=== PATIENT | male | born 1945 | race Caucasian/White ===

== ENCOUNTER 2017-10-22 11:23 | Inpatient (IN) | payer OTHER, MEDICAID ==
[~2017-10-22] VITALS: Ht 172.7 cm; Wt 70.5 kg
[2017-10-22 12:56] LABS: Basophils # (auto) 0 uL; Eosinophils # (auto) 0.1 uL; Hemoglobin 13.2 g/dL (13.5-17.5); Lymphocytes # (auto) 1.6 uL; Lymphocytes % (auto) 14.5 % (10.0-50.0); Monocytes # (auto) 0.9 uL
[2017-10-22 12:58] LABS: Basophils % (auto) 0.3 % (0.0-2.0); Eosinophils % (auto) 0.8 % (0.0-7.0); Mean Corpuscular Hemoglobin 32.7 pg (28.0-32.0); Mean Corpuscular Hgb Conc. 33.8 g/dL (32.0-36.0); Mean Corpuscular Volume 96.9 fL (80.0-100.0); Monocytes % (auto) 7.8 % (0.0-12.0); Neutrophils # (auto) 8.5 uL; Neutrophils % (auto) 76.6 % (37.0-80.0); Platelet Count (auto) 472 10^3/uL (140-450); Red Blood Cells 4.02 10^6/uL (4.5-5.90); Red Cell Distribution Width 12.7 % (11.8-14.3); White Blood Cell 11.1 10^3/uL (4.4-10.8)
[2017-10-22 13:12] LABS: Albumin 3.3 g/dL (3.4-5.0); BUN/Creatinine Ratio 12.7; Bilirubin, Total 0.4 mg/dL (0.2-1.0); Calcium 9.7 mg/dL (8.5-10.1); Potassium 4.4 mmol/L (3.5-5.1); Total Protein 7.6 g/dL (6.4-8.2)
[2017-10-22] MEDS ORDERED: MORPHINE SULFATE 4 MG/ML SYR/VIAL IV ONE (13:30)
[2017-10-22] MEDS ORDERED: ONDANSETRON HCL 4 MG/2 ML VIAL IV ONE (13:30)
[2017-10-22 13:41] LABS: Magnesium 2.5 mg/dL (1.6-2.6)
[2017-10-22 13:54] LABS: INR 0.92 (0.9-1.15); Partial Thromboplastin Time 31.8 sec (22.64-33.71)
[2017-10-22] MEDS ORDERED: ONDANSETRON HCL 4 MG/2 ML VIAL IV PRN (14:45)
[2017-10-22] MEDS ORDERED: cefTRIAXone 1GM/10ml IVPUSH 10 ML IV ONE (14:45)
[2017-10-22] MEDS ORDERED: PANTOPRAZOLE 40 MG TAB PO ONE (15:00)
[2017-10-22] MEDS: SODIUM CHLORIDE 0.9% 1,000 ML IV SCH (16:10)
[2017-10-22 17:15] LABS: Urine Bacteria NONE SEEN /hpf (None Seen); Urine Blood Negative /uL (Negative); Urine Hyaline Cast FEW /lpf (0 - 2); Urine Specific Gravity 1.017 (1.001-1.035); Urine WBC 4 /hpf (0 - 3)
[2017-10-22] MEDS ORDERED: MAGN400S25 PO (17:42)
[2017-10-22] MEDS ORDERED: IBUP200C3 PO (17:42)
[2017-10-22] MEDS ORDERED: DOCU-94 PO (17:42)
[2017-10-22] MEDS ORDERED: SENN1TAB14 PO (17:42)
[2017-10-22] MEDS: HYDROcodone-ACET 5/325MG TAB PO PRN (20:11)
[2017-10-22 22:00] VITALS: BP 122/77
[2017-10-22] MEDS: MORPHINE SULFATE 4 MG/ML SYR/VIAL IV PRN (23:45)
[2017-10-23] MEDS: SODIUM CHLORIDE 0.9% 1,000 ML IV SCH ×2 (00:45→11:23)
[2017-10-23] MEDS: HYDROcodone-ACET 5/325MG TAB PO PRN ×2 (03:39→18:41)
[2017-10-23 05:00] VITALS: BP 142/83
[2017-10-23] MEDS: MORPHINE SULFATE 4 MG/ML SYR/VIAL IV PRN ×2 (05:09→20:08)
[2017-10-23 06:43] LABS: Basophils # (auto) 0 uL; Basophils % (auto) 0.3 % (0.0-2.0); Eosinophils # (auto) 0.2 uL; Hematocrit 38.2 % (41.0-53.0); Hemoglobin 12.8 g/dL (13.5-17.5); Lymphocytes # (auto) 1.4 uL; Lymphocytes % (auto) 14.2 % (10.0-50.0); Mean Corpuscular Hemoglobin 32.9 pg (28.0-32.0); Mean Corpuscular Hgb Conc. 33.5 g/dL (32.0-36.0); Mean Corpuscular Volume 98.4 fL (80.0-100.0); Monocytes # (auto) 0.9 uL; Monocytes % (auto) 9.2 % (0.0-12.0); Neutrophils # (auto) 7.5 uL; Neutrophils % (auto) 74.3 % (37.0-80.0); Platelet Count (auto) 415 10^3/uL (140-450); Red Blood Cells 3.88 10^6/uL (4.5-5.90); Red Cell Distribution Width 12.6 % (11.8-14.3); White Blood Cell 10.2 10^3/uL (4.4-10.8)
[2017-10-23 06:50] LABS: BUN/Creatinine Ratio 13.7; Calcium 8.7 mg/dL (8.5-10.1); Potassium 4.5 mmol/L (3.5-5.1)
[2017-10-23 09:00] VITALS: BP 131/69
[2017-10-23] MEDS ORDERED: IODIXANOL 320MG/ML 100ML BTL IV ONE (09:40)
[2017-10-23] MEDS ORDERED: LIDOCAINE HCL 2 %PF INJ 10ML AMP IJ ONE ×2 (09:41→10:25)
[2017-10-23] MEDS: PANTOPRAZOLE 40 MG TAB PO SCH (09:45)
[2017-10-23] MEDS ORDERED: fentaNYL CITRATE 100 MCG/2 ML VL ONE (10:04)
[2017-10-23] MEDS ORDERED: MIDAZOLAM HCL 1MG/1ML-2 ML VIAL ONE (10:04)
[2017-10-23] MEDS: cefTRIAXone 1GM/10ml IVPUSH 10 ML IV SCH (11:33)
[2017-10-23 13:00] VITALS: BP 120/73
[2017-10-23 16:59] VITALS: BP 144/68
[2017-10-23 22:00] VITALS: BP 102/63
[2017-10-24] MEDS: SODIUM CHLORIDE 0.9% 1,000 ML IV SCH ×3 (04:33→17:48)
[2017-10-24 05:40] VITALS: BP 162/86
[2017-10-24 07:43] LABS: Basophils # (auto) 0 uL; Basophils % (auto) 0.3 % (0.0-2.0); Eosinophils # (auto) 0.3 uL; Eosinophils % (auto) 3.3 % (0.0-7.0); Hematocrit 36.2 % (41.0-53.0); Lymphocytes # (auto) 1.6 uL; Lymphocytes % (auto) 19.5 % (10.0-50.0); Mean Corpuscular Hemoglobin 32.6 pg (28.0-32.0); Mean Corpuscular Hgb Conc. 33.3 g/dL (32.0-36.0); Mean Corpuscular Volume 97.8 fL (80.0-100.0); Monocytes # (auto) 0.7 uL; Monocytes % (auto) 8.4 % (0.0-12.0); Neutrophils # (auto) 5.7 uL; Neutrophils % (auto) 68.5 % (37.0-80.0); Platelet Count (auto) 422 10^3/uL (140-450); Red Cell Distribution Width 12.6 % (11.8-14.3); White Blood Cell 8.4 10^3/uL (4.4-10.8)
[2017-10-24 07:56] LABS: BUN/Creatinine Ratio 15.5; Calcium 8.8 mg/dL (8.5-10.1); Potassium 4.4 mmol/L (3.5-5.1)
[2017-10-24] MEDS: MORPHINE SULFATE 4 MG/ML SYR/VIAL IV PRN ×3 (07:56→20:30)
[2017-10-24 08:00] VITALS: BP 148/96
[2017-10-24 09:00] VITALS: BP 148/96
[2017-10-24] MEDS: cefTRIAXone 1GM/10ml IVPUSH 10 ML IV SCH (09:53)
[2017-10-24] MEDS: PANTOPRAZOLE 40 MG TAB PO SCH (09:59)
[2017-10-24 13:00] VITALS: BP 138/90
[2017-10-24 16:55] VITALS: BP 155/99
[2017-10-24 21:43] VITALS: BP 161/89
[2017-10-24] MEDS ORDERED: METOPROLOL SUCCINATE XL 50 MG TAB PO ONE (23:00)
[2017-10-24] MEDS: LACTULOSE 20Gm/30ML SOLN PO PRN (23:43)
[2017-10-25] MEDS: MORPHINE SULFATE 4 MG/ML SYR/VIAL IV PRN ×5 (02:45→23:07)
[2017-10-25] MEDS: SODIUM CHLORIDE 0.9% 1,000 ML IV SCH ×3 (02:46→23:06)
[2017-10-25 05:00] VITALS: BP 145/88
[2017-10-25 08:15] VITALS: BP 129/85
[2017-10-25 08:43] VITALS: BP 129/85
[2017-10-25] MEDS: METOPROLOL SUCCINATE XL 50 MG TAB PO SCH (09:14)
[2017-10-25] MEDS: cefTRIAXone 1GM/10ml IVPUSH 10 ML IV SCH (09:14)
[2017-10-25] MEDS: PANTOPRAZOLE 40 MG TAB PO SCH (09:14)
[2017-10-25 13:30] VITALS: BP 113/79
[2017-10-25] MEDS: ceFAZolin 1GM/50ML 50 ML IV SCH ×2 (13:33→23:05)
[2017-10-25 16:40] VITALS: BP 139/86
[2017-10-25 21:38] VITALS: BP 146/91
[2017-10-25] MEDS ORDERED: LINEZOLID 600MG/300ML 300 ML IV SCH (22:00)
[2017-10-26] MEDS: MORPHINE SULFATE 4 MG/ML SYR/VIAL IV PRN ×4 (04:03→20:02)
[2017-10-26 04:38] VITALS: BP 153/109
[2017-10-26] MEDS: ceFAZolin 1GM/50ML 50 ML IV SCH ×3 (07:22→23:46)
[2017-10-26 08:00] LABS: Albumin 3.2 g/dL (3.4-5.0); BUN/Creatinine Ratio 21.6; Bilirubin, Total 0.3 mg/dL (0.2-1.0); Calcium 8.9 mg/dL (8.5-10.1); Total Protein 7.7 g/dL (6.4-8.2)
[2017-10-26 09:10] VITALS: BP 145/64
[2017-10-26] MEDS: SODIUM CHLORIDE 0.9% 1,000 ML IV SCH ×2 (09:11→18:45)
[2017-10-26] MEDS: PANTOPRAZOLE 40 MG TAB PO SCH (09:53)
[2017-10-26] MEDS: METOPROLOL SUCCINATE XL 50 MG TAB PO SCH (09:54)
[2017-10-26] MEDS ORDERED: IOHEXOL 300 MG/ML 100ML BOTTLE IJ ONE (10:00)
[2017-10-26] MEDS: LACTULOSE 20Gm/30ML SOLN PO PRN (12:00)
[2017-10-26 13:00] VITALS: BP 130/77
[2017-10-26 17:27] VITALS: BP 116/81
[2017-10-26 21:52] VITALS: BP 115/62
[2017-10-27] MEDS: SODIUM CHLORIDE 0.9% 1,000 ML IV SCH ×2 (04:45→15:22)
[2017-10-27 05:02] VITALS: BP 132/80
[2017-10-27] MEDS: MORPHINE SULFATE 4 MG/ML SYR/VIAL IV PRN ×3 (05:21→20:20)
[2017-10-27] MEDS: ceFAZolin 1GM/50ML 50 ML IV SCH ×4 (06:00→23:05)
[2017-10-27 08:41] VITALS: BP 133/87
[2017-10-27 08:48] LABS: BUN/Creatinine Ratio 20.6; Calcium 8.8 mg/dL (8.5-10.1); Potassium 4.1 mmol/L (3.5-5.1)
[2017-10-27] MEDS ORDERED: PROPOFOL 10 MG/ML 20 ML IV ONE (08:53)
[2017-10-27] MEDS ORDERED: fentaNYL CITRATE 100 MCG/2 ML VL ONE (08:53)
[2017-10-27] MEDS ORDERED: ETOMIDATE (2MG/ML) 20ML VIAL IV ONE (08:53)
[2017-10-27] MEDS ORDERED: ONDANSETRON HCL 4 MG/2 ML VIAL ONE (08:53)
[2017-10-27] MEDS ORDERED: MIDAZOLAM HCL 1MG/1ML-2 ML VIAL ONE (08:53)
[2017-10-27] MEDS: METOPROLOL SUCCINATE XL 50 MG TAB PO SCH (10:00)
[2017-10-27] MEDS: PANTOPRAZOLE 40 MG TAB PO SCH (10:00)
[2017-10-27] MEDS ORDERED: METOCLOPRAMIDE HCL 5MG/ml INJ 2ml VIAL IV ONE (10:30)
[2017-10-27] MEDS ORDERED: MORPHINE SULFATE 4 MG/ML SYR/VIAL IV PRN (10:30)
[2017-10-27 12:21] VITALS: BP 109/70
[2017-10-27] MEDS: LACTULOSE 20Gm/30ML SOLN PO PRN ×2 (13:36→18:47)
[2017-10-27 17:19] VITALS: BP 125/80
[2017-10-27 21:56] VITALS: BP 128/86
[2017-10-28] MEDS: SODIUM CHLORIDE 0.9% 1,000 ML IV SCH (01:00)
[2017-10-28] MEDS: MORPHINE SULFATE 4 MG/ML SYR/VIAL IV PRN ×3 (01:58→14:24)
[2017-10-28] MEDS: HYDROcodone-ACET 5/325MG TAB PO PRN (04:01)
[2017-10-28 05:00] VITALS: BP 130/88
[2017-10-28] MEDS: ceFAZolin 1GM/50ML 50 ML IV SCH ×2 (06:09→14:00)
[2017-10-28 06:37] LABS: Basophils # (auto) 0 uL; Basophils % (auto) 0.3 % (0.0-2.0); Eosinophils # (auto) 0.3 uL; Monocytes # (auto) 0.7 uL; Red Cell Distribution Width 12.6 % (11.8-14.3); White Blood Cell 9.6 10^3/uL (4.4-10.8)
[2017-10-28 06:39] LABS: Eosinophils % (auto) 2.9 % (0.0-7.0); Hematocrit 35.5 % (41.0-53.0); Hemoglobin 12.1 g/dL (13.5-17.5); Lymphocytes # (auto) 1.2 uL; Lymphocytes % (auto) 12.8 % (10.0-50.0); Mean Corpuscular Hemoglobin 33.1 pg (28.0-32.0); Mean Corpuscular Volume 97.4 fL (80.0-100.0); Monocytes % (auto) 7.4 % (0.0-12.0); Neutrophils # (auto) 7.3 uL; Neutrophils % (auto) 76.6 % (37.0-80.0); Platelet Count (auto) 453 10^3/uL (140-450); Red Blood Cells 3.64 10^6/uL (4.5-5.90)
[2017-10-28 09:37] VITALS: BP 153/86
[2017-10-28] MEDS: PANTOPRAZOLE 40 MG TAB PO SCH (10:01)
[2017-10-28] MEDS: METOPROLOL SUCCINATE XL 50 MG TAB PO SCH (10:01)
[2017-10-28 12:41] VITALS: BP 139/82
== END 2017-10-28 15:13 | disposition hospice, home (50) | DRG 694 ==
LOC: ER 11:23 → OVERFLOW 11:24 → CENTRAL 16:57
PROVIDERS: ADMIT Internal Medicine; ATTEND Internal Medicine
PROC: BT1F1ZZ Fluoroscopy of Left Kidney, Ureter and Bladder using Low Osmolar Contrast (ICD-10-PCS; principal; 2017-10-23)
PROC: 0T913ZZ Drainage of Left Kidney, Percutaneous Approach (ICD-10-PCS; 2017-10-23)
PROC: 0TJB8ZZ Inspection of Bladder, Via Natural or Artificial Opening Endoscopic (ICD-10-PCS; 2017-10-27)
PROC: 0VTTXZZ Resection of Prepuce, External Approach (ICD-10-PCS; 2017-10-27)
DX: N13.30 Unspecified hydronephrosis (principal); N17.9 Acute kidney failure, unspecified; Z93.6 Other artificial openings of urinary tract status; E78.5 Hyperlipidemia, unspecified; I10 Essential (primary) hypertension; I25.10 Atherosclerotic heart disease of native coronary artery without angina pectoris; N47.1 Phimosis; I70.8 Atherosclerosis of other arteries; J45.909 Unspecified asthma, uncomplicated; K57.30 Diverticulosis of large intestine without perforation or abscess without bleeding; K59.00 Constipation, unspecified; N40.0 Benign prostatic hyperplasia without lower urinary tract symptoms; N50.82 Scrotal pain; Z41.2 Encounter for routine and ritual male circumcision; Z82.3 Family history of stroke; Z82.49 Family history of ischemic heart disease and other diseases of the circulatory system; Z83.3 Family history of diabetes mellitus; Z95.1 Presence of aortocoronary bypass graft
CPT/HCPCS: 36415; 71045; 71260; 74176; 74177; 74420; 74425; 76942; 80048; 80053; 81001; 83690; 83735; 85025; 85610; 85730; 87081; 87086; 93005; 94761; 96374; 96375; 96376; 99152; C1729; J0690; J2250; J2405; J2704; Q9967